=== PATIENT | male | born 1965 | race Caucasian/White ===

== ENCOUNTER 2017-11-19 13:25 | Emergency (ER) | payer BC, OTHER ==
[2017-11-19] MEDS ORDERED: methylPREDNISolone Sodium Succinate 125 MG/2 ML SDV IM ONE (13:37)
[2017-11-19] MEDS ORDERED: hydrOXYzine HCl 50 MG/ML SDV IM ONE (13:37)
--- NOTE | 2017-11-19 13:43 | EDM.PDOC ---
ED HPI GENERAL MEDICAL PROBLEM - General Stated Complaint: HIVES Time Seen by Provider: 11/19/17 13:30 Source of Information: Reports: Patient History Limitations: Reports: No Limitations - History of Present Illness INITIAL COMMENTS - FREE TEXT/NARRATIVE: Patient comes into the emergency department with hives starting approximately an hour ago. Patient does have a long-standing history of breaking out in hives related to stress. He's been under a lot of stress lately-his just had surgery and his daughter who is a senior playing volleyball today. He noticed prior to eating lunch that he started breaking out in hives. He did take 2 Benadryl prior to arrival however it did not help. Patient denies any shortness of breath, chest pain, numbness and tingling in the mouth, or inability to take a deep breath. Patient states that he last broke out in hives approximately week ago and they resolved after 24 hours. Onset: Today, Sudden Quality: Reports: Ache Severity: Mild Improves with: Reports: None Worsens with: Reports: None Associated Symptoms: Reports: No Other Symptoms - Related Data Allergies Allergy/AdvReac Type Severity Reaction Status Date / Time No Known Allergies Allergy Verified 11/19/17 14:26 Home Meds: Home Meds Tamsulosin HCl [Flomax] 0.4 mg DAILY 11/19/17 [History] predniSONE 10 mg PO BID 4 Days #8 tablet 11/19/17 [Rx] ED ROS ALLERGIC REACTION - Review of Systems Review Of Systems: See Below Constitutional: Reports: No Symptoms HEENT: Reports: No Symptoms Respiratory: Reports: No Symptoms Cardiovascular: Reports: No Symptoms Endocrine: Reports: No Symptoms GI/Abdominal: Reports: No Symptoms : Reports: No Symptoms Musculoskeletal: Reports: No Symptoms Skin: Reports: Urticaria Neurological: Reports: No Symptoms Psychiatric: Reports: No Symptoms Hematologic/Lymphatic: Reports: No Symptoms Immunologic: Reports: No Symptoms ED EXAM GENERAL NO PERIP PULSE - Physical Exam Exam: See Below Exam Limited By: No Limitations General Appearance: Alert, WD/WN, No Apparent Distress Eye Exam: Bilateral Eye: EOMI, PERRL Nose: Normal Inspection, Normal Mucosa, No Blood Throat/Mouth: Normal Inspection, Normal Teeth, Normal Gums, Normal Oropharynx, Normal Voice, No Airway Compromise Head: Atraumatic, Normocephalic Neck: Normal Inspection, Supple, Non-Tender, Full Range of Motion Respiratory/Chest: No Respiratory Distress, Lungs Clear, Normal Breath Sounds, No Accessory Muscle Use, Chest Non-Tender Cardiovascular: Normal Peripheral Pulses, Regular Rate, Rhythm, No Edema GI/Abdominal: Normal Bowel Sounds, Soft, Non-Tender, No Distention Back Exam: Normal Inspection, Full Range of Motion Extremities: Normal Inspection, Normal Range of Motion, Non-Tender, No Pedal Edema, Normal Capillary Refill Neurological: Alert, Oriented, Normal Cognition, Normal Gait Psychiatric: Normal Affect, Normal Mood Skin Exam: Rash (generalized thoughout upper body ) Course - Vital Signs Last Recorded V/S: Last Vital Signs Temp 37.1 C 11/19/17 13:25 Pulse 101 H 11/19/17 13:25 Resp 18 11/19/17 13:25 BP 109/76 11/19/17 13:25 Pulse Ox 94 L 11/19/17 13:25 - Orders/Labs/Meds Meds: Medications Discontinued Medications Generic Name Dose Route Start Last Admin Trade Name Freq PRN Reason Stop Dose Admin Famotidine 20 mg 11/19/17 14:36 11/19/17 14:59 Pepcid PO 11/19/17 14:37 20 mg ONETIME ONE Administration Hydroxyzine HCl 50 mg 11/19/17 13:37 11/19/17 13:49 Vistaril IM 11/19/17 13:38 50 mg ONETIME ONE Administration Methylprednisolone Sodium Succinate 125 mg 11/19/17 13:37 11/19/17 13:49 Solu-Medrol IM 11/19/17 13:38 125 mg ONETIME ONE Administration Departure - Departure Time of Disposition: 15:10 Disposition: Home, Self-Care 01 Condition: Good Clinical Impression: Hives of unknown origin - Discharge Information *PRESCRIPTION DRUG MONITORING PROGRAM REVIEWED*: Not Applicable *COPY OF PRESCRIPTION DRUG MONITORING REPORT IN PATIENT KATELYN: Not Applicable Prescriptions: predniSONE 10 mg PO BID 4 Days #8 tablet Instructions: Hives Referrals: PCP,Not In Area [Primary Care Provider] - Forms: ED Department Discharge Additional Instructions: 1. rest 2. increase water intake 3. Take Benadryl every 4 hours for the next 24 hours to help reduce another flar of hives 4. Try to reduce the stress in your life where possible 5. Follow up with PCP if not better in 2-3 days 6. Activity and diet as tolerated - Assessment/Plan Assessment:: 1. Urticaria Plan: 1. Hydroxyzine IM given in the ER 2. Solumedrol IM given in ER 3. Pt advised to take Benadryl every 4 hours for the next 24 hours 4. Did offer to admit for observation however he declined and would monitor on his own and return to ER if need be 5. Did recommend follow up with PCP in 2 days if not better 6. Education regarding activity and diet provided 7. Take Zantac daily for 1 month 8. Prednisone 10mg BID 5 days
[2017-11-19] MEDS ORDERED: Famotidine 20 MG Tab PO ONE (14:36)
== END 2017-11-19 15:10 | disposition home or self-care (01) ==
LOC: VM.ED 13:25
DX: L50.9 Urticaria, unspecified (principal); Z79.899 Other long term (current) drug therapy
CPT/HCPCS: 96372; 99283; A9270; J2930; J3410